=== PATIENT | male | born 1955 | race Caucasian/White ===

== ENCOUNTER 2019-04-25 10:21 | Inpatient (IN) | payer OTHER ==
--- NOTE | 2019-04-25 10:46 | PDOC ---
Documentation entered by Manuel Alejo SCRIBE, acting as scribe for Marcelino Urbina MD. Marcelino Urbina MD: This documentation has been prepared by the Melo tyler Xhesika, SCRIBE, under my direction and personally reviewed by me in its entirety. I confirm that the documentation accurately reflects all work, treatment, procedures, and medical decision making performed by me. History of Present Illness - General Stated Complaint: NUMBNESS ON LT. SIDE History Source: Patient Exam Limitations: No Limitations - History of Present Illness Initial Comments: 04/25/19 10:43 The patient is a 63-year-old male with a past medical history of prostate cancer , SVT, GERD, gastritis, and hemorrhoids who presents to the ED with L sided facial droop since 5:50AM. The patient states he woke up this morning with numbness on his L arm and his head felt heavy. The patient notes he has a family history of CVA (brother and uncle suffered from strokes). The patient denies any chest pain, shortness of breath, fever, chills, nausea, or vomiting. Denies any frequency, urgency, hesitancy, dysuria, or hematuria. Denies any chest pain or shortness of breath. Allergies: NKDA Social History: Occasional alcohol use. Former smoker. Surgical History: Hernia repair, NIH Stroke Scale - Last Known Well Date/Time & Onset Date Last Known Well: 04/25/19 Time Last Known Well: 05:50 - Initial Evaluation Level of consciousness: Alert Ask patient the month and their age: Answers both correctly Ask patient to open & close eyes; make fist and let go: Obeys both correctly Best gaze (horizontal eye movement): Normal Visual field testing: No visual field loss Facial paresis (Show teeth/raise eyebrows/close eyes tight): Partial paralysis ( total or near paralysis of lower face) Motor Function: Left Arm: Normal Motor Function: Right Arm: Normal (extends arm 90 (or 45) degrees for 10 seconds without drift Motor Function: Left Leg: Normal (extends leg 30 degrees for 5 seconds without drift) Motor Function: Right Leg: Normal (extends leg 30 degrees for 5 seconds without drift) Limb Ataxia: No ataxia Sensory(Use pinprick test arms,legs,trunk,face/side to side): Normal Best language (Describe picture, name items, read sentences): No Aphasia Dysarthria (read several words): Normal articulation Extinction and Inattention: No abnormality - Total Score NIH Stroke Scale Score: 2 Past History - Past Medical History Allergies/Adverse Reactions: Allergies Allergy/AdvReac Type Severity Reaction Status Date / Time No Known Allergies Allergy Verified 04/25/19 10:35 Home Medications: Ambulatory Orders Tamsulosin HCl [Flomax -] 0.4 mg PO DAILY 01/07/15 Metoprolol Succinate [Toprol XL -] 25 mg PO DAILY #30 tab.sr.24h 01/08/15 - Surgical History Abdominal Surgery: Yes (HERNIA REPAIR.) - Suicide/Smoking/Psychosocial Hx Smoking History: Former smoker Have you smoked in the past 12 months: No If you are a former smoker, when did you quit?: 2010 Hx Alcohol Use: Yes Drug/Substance Use Hx: No Substance Use Type: None Hx Substance Use Treatment: No Review of Systems - Review of Systems Able to Perform ROS?: Yes Comments:: 04/25/19 10:44 A complete review of 10 out of 10 review of systems is taken and is negative apart from what is previously mentioned below and in the HPI. *Physical Exam - Physical Exam Comments: 04/25/19 10:44 Vitals: Triage Vital signs reviewed General Appearance: no acute distress, well nourished well developed, Head: Atraumatic, normocephalic Eyes: Pupils equal reactive round, extraocular movement intact Neck: Supple;No Nuchal rigidity Chest Wall: Nontender Cardiac: Regular rate and rhythm, no murmurs, no rubs, no gallops, Lungs: Clear to auscultation bilateral, good air movement bilaterally, Abdomen: Soft, nondistended, normal bowel sounds, nontender to palpation Extremities: Full range of motion to all extremities, no cyanosis, clubbing, or edema Skin: Warm and dry, no rashes or lesions, no petechiae Neuro: (+) L sided facial droop. AOX3; Cranial Nerves 2-12 grossly c intact, Strength intact to all extremities, Sensation intact to all extremities, gait normal Psych: normal mood, normal affect Heart Score/ECG Review - ECG Impressions Comment:: 04/25/19 15:04 EKG performed at 1028 demonstrates normal sinus rhythm no ST elevations no T- wave inversions. Interpreted by me. ED Treatment Course - LABORATORY CBC & Chemistry Diagram: 04/25/19 11:01 04/25/19 11:01 Medical Decision Making - Medical Decision Making 04/25/19 15:04 Isolated left-sided facial droop stroke scale score 2 nonischemic TPA candidate case discussed with neurology No acute findings on patient's CT. Full dose aspirin given neurology consult. We'll do to medicine for further management. 04/25/19 15:31 *DC/Admit/Observation/Transfer Diagnosis at time of Disposition: Cerebrovascular accident (CVA) Qualifiers: CVA mechanism: other Qualified Code(s): I63.89 - Other cerebral infarction - Discharge Dispostion Disposition: HOME Decision to Admit order: Yes - Referrals - Patient Instructions - Post Discharge Activity
[2019-04-25] MEDS: SODIUM CHLORIDE 1,000 ML IV SCH (11:20)
[2019-04-25 11:41] LABS: BASO % 0.8 % (0-2.0); EOS % 3.5 % (0-4.5); HEMATOCRIT 38.9 % (35.4-49); HEMOGLOBIN 12.4 GM/dL (11.7-16.9); MEAN CELL VOLUME 78.1 fl (80-96); MEAN PLT VOLUME 8.6 fl (7.5-11.1); MONO % 7.4 % (3.8-10.2); NEUT % 56.3 % (42.8-82.8); PLATELET COUNT 196 K/MM3 (134-434); RBC 4.98 M/mm3 (4.00-5.60); RDW 17.1 % (11.9-15.9); WHITE BLOOD COUNT 5.8 K/mm3 (4.0-10.0)
[2019-04-25 11:42] LABS: INR 0.97 (0.83-1.09); PROTHROMBIN TIME (PATIENT) 11.4 SEC (9.7-13.0)
[2019-04-25 12:07] LABS: ALBUMIN 3.6 g/dl (3.4-5.0); BILIRUBIN,TOTAL 0.5 mg/dL (0.2-1); BLOOD UREA NITROGEN 10.7 mg/dL (7-18); CALCIUM 8.7 mg/dL (8.5-10.1); POTASSIUM 4.1 mmol/L (3.5-5.1); TOT PROT 6.6 g/dl (6.4-8.2)
[2019-04-25 12:08] LABS: HDL CHOLESTEROL 71 mg/dL (40-60); TRIGLYCERIDES 95 mg/dL (0-150)
[2019-04-25 12:10] LABS: CHOLESTEROL 162 mg/dL (50-200)
[2019-04-25] MEDS ORDERED: ASPIRIN 325 MG TABLET PO ONE (12:21)
[2019-04-25 12:44] LABS: PH,URINE 7.5 (5.0-8.0); URINE APPEARANCE CLEAR; URINE BILIRUBIN NEGATIVE (NEGATIVE); URINE COLOR YELLOW; URINE GLUCOSE (UA) NEGATIVE (NEGATIVE); URINE KETONE NEGATIVE (NEGATIVE); URINE LEUK ESTERASE NEGATIVE (NEGATIVE); URINE NITRITE NEGATIVE (NEGATIVE); URINE PROTEIN NEGATIVE (NEGATIVE); URINE UROBILINOGEN 0.2 mg/dL (0.2-1.0)
[2019-04-25] MEDS ORDERED: ASPIRIN 325 MG TABLET ONE (13:09)
--- NOTE | 2019-04-25 14:26 | HP ---
CHIEF COMPLAINT: Numbness and tingling of the left side of the face and arm for the past 7 hours. PCP: HISTORY OF PRESENT ILLNESS: The patient is a 63 year old male with past medical history significant for Prostate Cancer, SVT, and gastritis who presented to the ER with facial droop and paresthesia of the L face and arm for the past 7 hours. He was in his usual state of health until this morning at 5:30AM, when he woke up with numbness and tingling on the left side of his face and left arm. He reports overnight exposure to cold air on his face on account of sleeping in front of an air conditioning vent at home, which made him uncomfortable and caused him to wake up at 5:30 AM. At work, his coworker stated that his face looked different, which is when he first noticed left side facial drooping, and he presented to the ER. Patient does not report any recent history of infections, no recent vomiting or diarrhea, no recent travel or hiking/outdoor activities. ER course was notable for: (1) Lyme titers (2) MRI without contrast, EKG, Echo W/Doppler (3) Aspirin 325, Lovenox 40, Rosuvastatin 20mg, N/S Recent Travel:None PAST MEDICAL HISTORY: SVT (Ablation in 2015) Prostate Cancer (on Flomax) Gastritis PAST SURGICAL HISTORY: Social History: Smokin pack year history (quarter pack for 27 years), stopped smoking 17 years ago. Alcohol: Socially (says he will sometimes go months without drinking) Drugs: None Family History: HTN (mother) DM (sister) CVA (brother) [place] & septal defect (brother) Colon CA (grandmother) Allergies No Known Allergies Allergy (Verified 04/25/19 10:35) HOME MEDICATIONS: Home Medications Medication Instructions Recorded Tamsulosin HCl [Flomax -] 0.4 mg PO DAILY 01/07/15 Metoprolol Succinate [Toprol XL -] 25 mg PO DAILY #30 tab.sr.24h 01/08/15 REVIEW OF SYSTEMS CONSTITUTIONAL: Absent: fever, chills, diaphoresis, generalized weakness, malaise, loss of appetite, weight change HEENT: Absent: rhinorrhea, nasal congestion, throat pain, throat swelling, difficulty swallowing, mouth swelling, ear pain, eye pain, visual changes CARDIOVASCULAR: Absent: chest pain, syncope, palpitations, irregular heart rate, lightheadedness , peripheral edema RESPIRATORY: Absent: cough, shortness of breath, dyspnea with exertion, orthopnea, wheezing, stridor, hemoptysis GASTROINTESTINAL: Absent: abdominal pain, abdominal distension, nausea, vomiting, diarrhea, constipation, melena, hematochezia GENITOURINARY: Nocturia, Absent: dysuria, frequency, urgency, hesitancy, hematuria, flank pain , genital pain MUSCULOSKELETAL: Neck pain upon left sided rotation of head Absent: myalgia, arthralgia, joint swelling, back pain, neck pain SKIN: Absent: rash, itching, pallor HEMATOLOGIC/IMMUNOLOGIC: Absent: easy bleeding, easy bruising, lymphadenopathy, frequent infections ENDOCRINE: Absent: unexplained weight gain, unexplained weight loss, heat intolerance, cold intolerance NEUROLOGIC: Paresthesia L face, L arm, Facial droop L side, no visual loss PSYCHIATRIC: Absent: anxiety, depression, suicidal or homicidal ideation, hallucinations. PHYSICAL EXAMINATION Vital Signs - 24 hr 04/25/19 04/25/19 04/25/19 10:32 10:36 10:38 Temperature 98.1 F 98.2 F Pulse Rate 66 54 L Pulse Rate [ 68 Right Radial] Respiratory 14 18 Rate Blood Pressure 146/80 Blood Pressure 122/71 [Right Arm] O2 Sat by Pulse 98 99 98 Oximetry (%) GENERAL: Awake, alert, and fully oriented, in no acute distress. HEAD: Normal with no signs of trauma. EYES: R pupil reactive to light, L pupil non reactive; extraocular movements intact, sclera anicteric, conjunctiva clear. No lid lag. EARS, NOSE, THROAT: Ears normal, nares patent, oropharynx clear without exudates. Moist mucous membranes. NECK: Decreased motion on left sided rotation of head due to pain radiating from neck to scapula.No lymphadenopathy, JVD, or masses. LUNGS: Breath sounds equal, clear to auscultation bilaterally. No wheezes, and no crackles. No accessory muscle use. HEART: Regular rate and rhythm, normal S1 and S2 without murmur, rub or gallop. ABDOMEN: Soft, nontender, not distended, normoactive bowel sounds, no guarding, no rebound, no masses. No hepatomegaly or splenomegaly. MUSCULOSKELETAL: Normal range of motion at all joints. No bony deformities or tenderness. No CVA tenderness. UPPER EXTREMITIES: No arm drift. Power 5/5, normal sensation B/L 2+ pulses, warm , well-perfused. No cyanosis. No clubbing. No peripheral edema. LOWER EXTREMITIES: 2+ pulses, warm, well-perfused. No calf tenderness. No peripheral edema. NEUROLOGICAL: Facial droop, decreased sensations on L side of face, forehead wrinkling present. Speech not slurred but pt believes he sounds different. Gait not observed. PSYCHIATRIC: Cooperative. Good eye contact. Appropriate mood and affect. SKIN: Warm, dry, normal turgor, no rashes or lesions noted, normal capillary refill. Laboratory Results - last 24 hr 04/25/19 04/25/19 04/25/19 10:28 11:01 11:01 WBC 5.8 RBC 4.98 Hgb 12.4 Hct 38.9 D MCV 78.1 L MCH 25.0 L D MCHC 32.0 RDW 17.1 H Plt Count 196 MPV 8.6 Absolute Neuts (auto) 3.3 Neutrophils % 56.3 Lymphocytes % 32.0 D Monocytes % 7.4 Eosinophils % 3.5 D Basophils % 0.8 Nucleated RBC % 0 PT with INR INR Sodium Potassium Chloride Carbon Dioxide Anion Gap BUN Creatinine Est GFR (CKD-EPI)AfAm Est GFR (CKD-EPI)NonAf POC Glucometer 92 Random Glucose Calcium Total Bilirubin AST ALT Alkaline Phosphatase Creatine Kinase 128 Troponin I < 0.02 Total Protein Albumin Triglycerides Cholesterol 162 Total LDL Cholesterol HDL Cholesterol Urine Color Urine Appearance Urine pH Ur Specific [place] Urine Protein Urine Glucose (UA) Urine Ketones Urine Blood Urine Nitrite Urine Bilirubin Urine Urobilinogen Ur Leukocyte Esterase Blood Type Antibody Screen 04/25/19 04/25/19 04/25/19 11:01 11:01 11:01 WBC RBC Hgb Hct MCV MCH MCHC RDW Plt Count MPV Absolute Neuts (auto) Neutrophils % Lymphocytes % Monocytes % Eosinophils % Basophils % Nucleated RBC % PT with INR 11.40 INR 0.97 Sodium 143 Potassium 4.1 Chloride 110 H Carbon Dioxide 27 Anion Gap 6 L BUN 10.7 Creatinine 1.0 Est GFR (CKD-EPI)AfAm 91.13 Est GFR (CKD-EPI)NonAf 78.63 POC Glucometer Random Glucose 96 Calcium 8.7 Total Bilirubin 0.5 AST 18 ALT 26 Alkaline Phosphatase 73 Creatine Kinase Troponin I Total Protein 6.6 Albumin 3.6 Triglycerides 95 Cholesterol Total LDL Cholesterol 82 HDL Cholesterol 71 H Urine Color Urine Appearance Urine pH Ur Specific [place] Urine Protein Urine Glucose (UA) Urine Ketones Urine Blood Urine Nitrite Urine Bilirubin Urine Urobilinogen Ur Leukocyte Esterase Blood Type Antibody Screen 04/25/19 04/25/19 11:01 12:30 WBC RBC Hgb Hct MCV MCH MCHC RDW Plt Count MPV Absolute Neuts (auto) Neutrophils % Lymphocytes % Monocytes % Eosinophils % Basophils % Nucleated RBC % PT with INR INR Sodium Potassium Chloride Carbon Dioxide Anion Gap BUN Creatinine Est GFR (CKD-EPI)AfAm Est GFR (CKD-EPI)NonAf POC Glucometer Random Glucose Calcium Total Bilirubin AST ALT Alkaline Phosphatase Creatine Kinase Troponin I Total Protein Albumin Triglycerides Cholesterol Total LDL Cholesterol HDL Cholesterol Urine Color Yellow Urine Appearance Clear Urine pH 7.5 Ur Specific [place] 1.005 L Urine Protein Negative Urine Glucose (UA) Negative Urine Ketones Negative Urine Blood Negative Urine Nitrite Negative Urine Bilirubin Negative Urine Urobilinogen 0.2 Ur Leukocyte Esterase Negative Blood Type Cancelled Antibody Screen Cancelled ASSESSMENT/PLAN: # CVA workup -Echo w Doppler: LA mildy dilated, mild MR, mild TR, severe atherosclerotic plaques in ascending aorta, large echodensity in LA -Transesophageal echo pending _Heparin infusion started -CT Head shows no signs of hemorrhage -MRI pending -ASA 81mg started, 325mg delivered -Crestor 20mg #Lyme disease workup -Lyme AB IgG/IgM ordered #FEN -N/S -Mg,Phos pending #DVT -Heparin Visit type - Emergency Visit Emergency Visit: Yes ED Registration Date: 04/25/19 Care time: The patient presented to the Emergency Department on the above date and was hospitalized for further evaluation of their emergent condition. - New Patient This patient is new to me today: Yes Date on this admission: 04/25/19 - Critical Care Critical Care patient: No ATTENDING PHYSICIAN STATEMENT I saw and evaluated the patient. I reviewed the resident's note and discussed the case with the resident. I agree with the resident's findings and plan as documented. SUBJECTIVE: OBJECTIVE: ASSESSMENT AND PLAN:
--- NOTE | 2019-04-25 15:40 | ECHO ---
Name: BRE [facility] Exam:Adult Echocardiogram Study Date: 04/25/2019 02:22 PM Age: 63 yrs Reason For Study: CVA Height: 67 in Weight: 143 lb BSA: 1.8 m2 Left Ventricle Left ventricular systolic function is normal. Ejection Fraction = 55-60%. Right Ventricle The right ventricle is normal in size and function. Atria The left atrium is mildly dilated. There is a large echodensity noted in the left atrium best appreci ated on the parasternal long axis views: cannot exclude thrombus vs mass vs artifact. Right atrial size is no rmal. Mitral Valve The mitral valve is normal in structure and function. There is mild mitral regurgitation. Tricuspid Valve The tricuspid valve is normal in structure and function. There is mild tricuspid regurgitation. Right ventricular systolic pressure is normal. Aortic Valve The aortic valve opens well. No hemodynamically significant valvular aortic stenosis. No aortic regur gitation is present. Pulmonic Valve The pulmonic valve is not well seen, but is grossly normal. There is no pulmonic valvular stenosis. Great Vessels The aortic root is normal size. Severe atherosclerotic plaque(s) in the ascending aorta. Interpretation Summary A transesophageal echocardiogram is recommended. Left ventricular systolic function is normal. Ejection Fraction = 55-60%. The right ventricle is normal in size and function. The left atrium is mildly dilated. There is mild mitral regurgitation. There is mild tricuspid regurgitation. Severe atherosclerotic plaque(s) in the ascending aorta. There is a large echodensity noted in the left atrium best appreciated on the parasternal long axis v iews: cannot exclude thrombus vs mass vs artifact. MD Pierce *Aminata 04/25/2019 03:40 PM
[2019-04-25] MEDS ORDERED: HEPARIN NA (PORCINE) 5,000 UNITS/ML 1ML VIAL IVPUSH PRN (15:56)
--- NOTE | 2019-04-25 17:00 | PN ---
Teaching Attending Note Name of Resident: Kevin Tejada ATTENDING PHYSICIAN STATEMENT I saw and evaluated the patient. I reviewed the resident's note and discussed the case with the resident. I agree with the resident's findings and plan as documented. SUBJECTIVE: Patient is a 63 year old male with PMHx of Prostate cancer, SVT ,Gastritis presented with left facial droop. Denies having any neurological deficit. OBJECTIVE: Vital Signs Temperature 98.2 F 04/25/19 10:36 Pulse Rate 54 L 04/25/19 10:36 Respiratory Rate 18 04/25/19 10:36 Blood Pressure 146/80 04/25/19 10:36 O2 Sat by Pulse Oximetry (%) 98 04/25/19 10:38 GENERAL: The patient is awake, alert, and fully oriented, in no acute distress. HEAD: Normal with no signs of trauma. EYES: PERRL, extraocular movements intact, sclera anicteric, conjunctiva clear. ENT: Ears normal, oropharynx clear without exudates, moist mucous membranes. left facial droop NECK: Trachea midline, full range of motion, supple. LUNGS: Breath sounds equal, clear to auscultation bilaterally, no wheezes, no crackles, no accessory muscle use. HEART: Regular rate and rhythm, S1, S2 without murmur, rub or gallop. ABDOMEN: Soft, nontender, nondistended, normoactive bowel sounds, no guarding, no rebound, no hepatosplenomegaly, no masses. EXTREMITIES: 2+ pulses, warm, well-perfused, no edema. NEUROLOGICAL: Cranial nerves II through XII grossly intact. Normal speech, gait is stable. PSYCH: Normal mood, normal affect. SKIN: Warm, dry, normal turgor, no rashes or lesions noted CBCD WBC 5.8 K/mm3 (4.0-10.0) 04/25/19 11:01 RBC 4.98 M/mm3 (4.00-5.60) 04/25/19 11:01 Hgb 12.4 GM/dL (11.7-16.9) 04/25/19 11:01 Hct 38.9 % (35.4-49) D 04/25/19 11:01 MCV 78.1 fl (80-96) L 04/25/19 11:01 MCHC 32.0 g/dl (32.0-35.9) 04/25/19 11:01 RDW 17.1 % (11.9-15.9) H 04/25/19 11:01 Plt Count 196 K/MM3 (134-434) 04/25/19 11:01 MPV 8.6 fl (7.5-11.1) 04/25/19 11:01 CMP Sodium 143 mmol/L (136-145) 04/25/19 11:01 Potassium 4.1 mmol/L (3.5-5.1) 04/25/19 11:01 Chloride 110 mmol/L (98-107) H 04/25/19 11:01 Carbon Dioxide 27 mmol/L (21-32) 04/25/19 11:01 Anion Gap 6 MMOL/L (8-16) L 04/25/19 11:01 BUN 10.7 mg/dL (7-18) 04/25/19 11:01 Creatinine 1.0 mg/dL (0.55-1.3) 04/25/19 11:01 Random Glucose 96 mg/dL (74-106) 04/25/19 11:01 Calcium 8.7 mg/dL (8.5-10.1) 04/25/19 11:01 Total Bilirubin 0.5 mg/dL (0.2-1) 04/25/19 11:01 AST 18 U/L (15-37) 04/25/19 11:01 ALT 26 U/L (13-61) 04/25/19 11:01 Alkaline Phosphatase 73 U/L (45-117) 04/25/19 11:01 Total Protein 6.6 g/dl (6.4-8.2) 04/25/19 11:01 Albumin 3.6 g/dl (3.4-5.0) 04/25/19 11:01 CARDIAC ENZYMES Creatine Kinase 128 U/L (26-308) 04/25/19 11:01 Troponin I < 0.02 ng/ml (0.00-0.05) 04/25/19 11:01 Current Medications Generic Name Dose Route Start Last Admin Trade Name Freq PRN Reason Stop Dose Admin Aspirin 81 mg 04/26/19 10:00 Asa - PO DAILY GILMA Heparin Sodium (Porcine) 1,000 unit 04/25/19 15:56 Heparin - IVPUSH PRN PRN Heparin Heparin Sodium (Porcine) 5,000 unit 04/25/19 15:56 Heparin - IVPUSH PRN PRN Heparin Sodium Chloride 1,000 mls @ 42 mls/hr 04/25/19 10:45 04/25/19 11:20 Normal Saline - IV 42 mls/hr ASDIR GILMA Administration Heparin Sodium/Dextrose 25,000 units in 500 mls @ 16 mls/hr 04/25/19 16:00 Heparin Infusion - IVPB TITR GILMA Protocol 800 UNITS/HR Rosuvastatin Calcium 20 mg 04/25/19 22:00 Crestor - PO HS [facility] Home Medications Medication Instructions Recorded Tamsulosin HCl [Flomax -] 0.4 mg PO DAILY 01/07/15 Metoprolol Succinate [Toprol XL -] 25 mg PO DAILY #30 tab.sr.24h 01/08/15 Echo: left atrium clot vs artifact HEAD ct: showed white matter disease. MRI: several small bl cerebellar infarcts BL, no acute event Carotid US: within nl limits ASSESSMENT AND PLAN: This patient is a 63 year old male with past medical history significant for Prostate Cancer, SVT, and gastritis who presented to the ER with facial droop and paresthesia of the L face and arm for the past 7 hours. #Left [place] palsy: as per neuro to start the patient on prednisone 40 mg once a day for five days, and valtrex 1 gm po tid for five days # Left atrial clot: on IV heparin and cardiology consult for ELIZABETH, dr. Jansen # Chronic small bl cerebellar infarcts on Heparin and will start the patient on Lipitor 40mg po daily or 20mg Crestor and aspirin 81mg DVT Px: heparin drip
[2019-04-25] MEDS: HEPARIN INFUSION - 25,000 UNITS/500 ML INFUS.BAG IVPB SCH ×2 (17:03→18:31)
--- NOTE | 2019-04-25 17:38 | CON.NEURO ---
Consult - Past Medical History Cardio/Vascular: Yes: Other (PSVT) Renal/: Yes: BPH - Alcohol/Substance Use Hx Alcohol Use: Yes - Smoking History Smoking history: Former smoker Have you smoked in the past 12 months: No If you are a former smoker, when did you quit?: 2010 Home Medications - Allergies Allergies/Adverse Reactions: Allergies Allergy/AdvReac Type Severity Reaction Status Date / Time No Known Allergies Allergy Verified 04/25/19 10:35 - Home Medications Home Medications: Ambulatory Orders Tamsulosin HCl [Flomax -] 0.4 mg PO DAILY 01/07/15 Simvastatin 40 mg PO DAILY 04/25/19 Physical Exam-Neuro Vital Signs: Vital Signs Temperature 98.2 F 04/25/19 10:36 Pulse Rate 54 L 04/25/19 10:36 Respiratory Rate 18 04/25/19 10:36 Blood Pressure 146/80 04/25/19 10:36 O2 Sat by Pulse Oximetry (%) 98 04/25/19 10:38 Labs: CBC, BMP 04/25/19 11:01 04/25/19 11:01 INR, PTT INR 0.97 (0.83-1.09) 04/25/19 11:01 Assessment/Plan cc Left facial palsy HPI 63 year old male history of Prostate cancer, SVT , Gastritis prsent with left face drooopiness. Patient denies any other focal neurological symptoms including arm and leg weakness or numbness. Patient has ct head showed, showed white matter disease. Patient has echo and found to have left atrium clot and is being started on iv heparin without bolus. He has mri of brain done , and carotid ultrasound done and result pending. PAST MEDICAL HISTORY: SVT (Ablation in 2014) Prostate Cancer (on Flomax) Gastritis PAST SURGICAL HISTORY: Social History: Smokin pack year history (quarter pack for 27 years), stopped smoking 17 years ago. Alcohol: Socially (says he will sometimes go months without drinking) Drugs: None Family History: HTN (mother) DM (sister) CVA (brother) [place] & septal defect (brother) Colon CA (grandmother) Allergies No Known Allergies Allergy (Verified 04/25/19 10:35) HOME MEDICATIONS: Home Medications Medication Instructions Recorded Tamsulosin HCl [Flomax -] 0.4 mg PO DAILY 01/07/15 Metoprolol Succinate [Toprol XL -] 25 mg PO DAILY #30 tab.sr.24h 01/08/15 Neurological Examination Alert oriented x 3 CN eomi, pupils reactive , left LMN type facial palsy Motor 5/5 all ext sensation is normal ct head is no acute findings mri of brain and carotid ultrasound is normal Assessment/Plan 1. Left [place] palsy, advice to take prednisone 40 mg once a day for five days, and valtrex 1 gm po tid for five days 2. Left atriaum clot , iv heparin and cardiology consult Clinically there is no evidence of stroke, would follow up on carotid ultrasound and echo Thanking you so much Marcos Mai MD
[2019-04-25] MEDS ORDERED: HEPARIN INFUSION - 25,000 UNITS/500 ML INFUS.BAG IVPB ONE (18:32)
[2019-04-25] MEDS: predniSONE 20 MG TABLET (UD) PO SCH (19:07)
[2019-04-25] MEDS ORDERED: predniSONE 20 MG TABLET (UD) ONE (19:10)
[2019-04-25 21:41] VITALS: BMI 28.5
[2019-04-25] MEDS ORDERED: PT OWN MED DRAWER 7, Y5N ONE (21:53)
[2019-04-25] MEDS ORDERED: ROSUVASTATIN CA 10 MG TABLET (FP) PO SCH (22:00)
[2019-04-25] MEDS: valACYclovir HCL 500 MG TABLET (FP) PO SCH (22:57)
[2019-04-25] MEDS: ROSUVASTATIN CA 20 MG TABLET (FP) PO SCH (22:57)
[2019-04-26] MEDS: HEPARIN NA (PORCINE) 5,000 UNITS/ML 1ML VIAL IVPUSH PRN ×2 (01:13→17:16)
[2019-04-26] MEDS: HEPARIN INFUSION - 25,000 UNITS/500 ML INFUS.BAG IVPB SCH ×3 (01:13→23:27)
[2019-04-26] MEDS ORDERED: PT OWN MED DRAWER 7, Y5N ONE ×2 (05:46→21:34)
[2019-04-26] MEDS: valACYclovir HCL 500 MG TABLET (FP) PO SCH ×3 (06:00→21:44)
[2019-04-26 07:23] LABS: INR 1.03 (0.83-1.09); PROTHROMBIN TIME (PATIENT) 12.2 SEC (9.7-13.0)
[2019-04-26 08:19] LABS: ALBUMIN 3.6 g/dl (3.4-5.0); BILIRUBIN,TOTAL 0.6 mg/dL (0.2-1); BLOOD UREA NITROGEN 9.4 mg/dL (7-18); CALCIUM 8.7 mg/dL (8.5-10.1); CREATININE 0.9 mg/dL (0.55-1.3); MAGNESIUM 2.4 mg/dL (1.8-2.4); PHOSPHOROUS 3.7 mg/dL (2.5-4.9); POTASSIUM 3.8 mmol/L (3.5-5.1); TOT PROT 6.6 g/dl (6.4-8.2)
--- NOTE | 2019-04-26 09:43 | CON.CARD ---
Consult Consult Specialty:: Cardiology Referred by:: Dr. Serna Reason for Consultation:: Abnormal Echo - History of Present Illness Chief Complaint: Left facial paralysis History of Present Illness: 63M w/ PMH typical AVNRT ablation 2014 ([place]) presented with left facial droop after being exposed to direct air conditioning. Initial concern for CVA, MRI negative. 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 As part of the initial CVA work up, he had a TTE that showed a large echodensity in the left atrium on multiple views best appreciated in the parasternal long axis views: the differential includes artifact, thrombus and less likely mass. A ELIZABETH was recommended and he was started on AC. Denies CP, SOB, edema, syncope. He does have occasional short lived palpitations that last for "few seconds." - History Source History Provided By: Patient, Medical Record - Past Medical History Cardio/Vascular: Yes: Hyperlipdemia, Other (PSVT) Pulmonary: No: Asthma, Bronchitis, Cancer, COPD, O2 Dependent, Pneumonia, Previously Intubated, Pulmonary Embolus, Pulmonary Fibrosis, Sleep Apnea, Other Gastrointestinal: No: Ascites, Cancer, Constipation, Crohn's Disease, Diverticulitis, Diverticulosis, Esophageal Varices, Gastritis, GERD, GI Bleed, Hemorrhoids, Hiatal Hernia, Inflamatory Bowel Disease, Irritable Bowel Disease, Pancreatitis, Peptic Ulcer Disease, Ulcerative Colitis, Other Hepatobiliary: No: Cirrhosis, Cholelithiasis, Cholecystitis, Choledocholithiasis , Hepatitis A, Hepatitis B, Hepatitis C, Other Renal/: Yes: BPH Heme/Onc: No: Anemia, B12 Deficiency, Bleeding Disorder, Cancer, Current Chemotherapy, Current Radiation Therapy, Hemochromatosis, Hypercoaguable State, Myeloproliferative Synd, Sickle Cell Disease, Sickle Cell Trait, Thrombocytopenia, Other Infectious Disease: No: AIDS, C-Diff, Herpes Zoster, HIV, MRSA, STD's, Tuberculosis, VREF, Other Psych: No: Addictions, Anxiety, Bipolar, Depression, Panic, Psychosis, Schizophrenia, Other Musculoskeletal: No: Bursitis, Chronic low back pain, Hemiparesis, Hemiplegia, Osteoarthritis, Paraplegia, Other Rheumatology: No: Fibromyalgia, Gout, Lupus, Rheumatoid Arthritis, Sarcoidosis, Vasculitis, Other ENT: No: Allergic Rhinitis, Sinusitis, Other Endocrine: No: Sun[place]'s Disease, [place]'s Disease, Diabetes Insipidus, Diabetes Mellitus, Hyperparathyroidism, Hyperthyroidism, Hypothyroidism, Osteopenia, SIADH, Other - Alcohol/Substance Use Hx Alcohol Use: Yes - Smoking History Smoking history: Former smoker Have you smoked in the past 12 months: No If you are a former smoker, when did you quit?: 2010 - Social History Usual Living Arrangement: Alone History of Recent Travel: No Home Medications - Allergies Allergies/Adverse Reactions: Allergies Allergy/AdvReac Type Severity Reaction Status Date / Time No Known Allergies Allergy Verified 04/25/19 10:35 - Home Medications Home Medications: Ambulatory Orders Tamsulosin HCl [Flomax -] 0.4 mg PO DAILY 01/07/15 Simvastatin 40 mg PO DAILY 04/25/19 Family Disease History - Family Disease History Family History: Unremarkable (not pertinent to this presentation) Review of Systems - Review of Systems Constitutional: reports: No Symptoms Eyes: reports: No Symptoms HENT: reports: Other (Left facial droop, left eye tearing) Cardiovascular: reports: Palpitations Respiratory: denies: No Symptoms, Cough, Exercise Intolerance, Hemoptysis, Orthopnea, PND, Snoring, SOB, SOB on Exertion, Wheezing, Other Gastrointestinal: denies: No Symptoms, Abdominal Pain, Bloating, Constipation, Diarrhea, Dysphagia, Indigestion, Melena, Nausea, Rectal Bleeding, Vomiting, Vomiting Blood, Other Genitourinary: denies: No Symptoms, Burning, Discharge, Dysuria, Flank Pain, Frequency, Hematuria, Incontinence, Lesions, Menses, Pain, Testicular Mass, Testicular Pain, Testicular Swelling, Urgency, Vaginal Bleeding, Other Breasts: denies: No Symptoms Reported, See HPI, Breast Implants, Discharge from Nipple, Lumps, Pain, Skin Changes, Other Musculoskeletal: denies: No Symptoms, Back Pain, Crepitus, Decreased ROM, Extremity Pain, Joint Pain, Joint Swelling, Muscle Pain, Muscle Cramps, Muscle Weakness, Other Integumentary: denies: No Symptoms, Blister, Bruising, Change in Color, Eczema, Erythema, Incision, Lesions, Lump, Pallor, Pruritis, Rash, Wound, Other Neurological: reports: Parasthesia, Other (left facial paralysis) Endocrine: denies: No Symptoms, Excessive Sweating, Flushing, Increased Hunger, Increased Thirst, Intolerance to Cold, Intolerance to Heat, Unexplained Weight Gain, Unexplained Weight Loss, Other Hematology/Lymphatic: denies: No Symptoms, Easily Bruised, Excessive Bleeding, Swollen Glands, Other Psychiatric: denies: No Symptoms, Altered Sleep Pattern, Anxiety, Depression, Hallucinations, Panic, Paranoia, Suicidal, Other - Risk Factors Known Risk Factors: Yes: Hypercholesterolemia Vital Signs: Vital Signs Temperature 98.0 F 04/26/19 06:00 Pulse Rate 76 04/26/19 06:00 Respiratory Rate 18 04/26/19 06:00 Blood Pressure 138/87 04/26/19 06:00 O2 Sat by Pulse Oximetry (%) 95 04/25/19 21:13 Constitutional: Yes: No Distress, Calm Eyes: Yes: Tearing, Other HENT: Yes: Atraumatic Neck: Yes: Supple Respiratory: Yes: CTA Bilaterally Gastrointestinal: Yes: Soft Cardiovascular: Yes: Regular Rate and Rhythm JVD: No Carotid Bruit: No PMI: Non-Displaced Heart Sounds: Yes: S1, S2 (RRR, no murmurs) Edema: No Peripheral Pulses WNL: No Neurological: Yes: Alert, Oriented, Facial Droop ...Motor Strength: WNL - Other Data Labs, Other Data: CBC, BMP 04/25/19 11:01 04/26/19 05:32 INR, PTT INR 1.03 (0.83-1.09) 04/26/19 05:32 Troponin, BNP 04/25/19 11:01 Troponin I < 0.02 Troponin, BNP 04/25/19 11:01 Troponin I < 0.02 Laboratory Tests 04/25/19 04/25/19 04/25/19 11:01 11:01 21:25 WBC 5.8 Hgb 12.4 Plt Count 196 PTT (Actin FS) Sodium Potassium Creatinine Calcium Phosphorus Magnesium Total Bilirubin AST ALT Alkaline Phosphatase Troponin I < 0.02 Lyme Screen IgG & IgM Pending 04/26/19 04/26/19 05:32 06:46 WBC Hgb Plt Count PTT (Actin FS) 122.7 H Sodium 142 Potassium 3.8 Creatinine 0.9 Calcium 8.7 Phosphorus 3.7 Magnesium 2.4 Total Bilirubin 0.6 AST 16 ALT 22 Alkaline Phosphatase 67 Troponin I Lyme Screen IgG & IgM Sinus lore 59bpm, no acute changes. Echo: Image Reviewed Prior Cardiac Procedures: Ablation Ejection Fraction %: LVEF > or = 40 % Imaging - Results MRI: Report Reviewed EKG: Image Reviewed Assessment/Plan IMP: 1. Pond's Palsy 2. History of typical AVNRT ablation 2015 ([place]) 3. Abnl echo w/ echodensity/shadow [place]: artifact vs thrombus vs mass REC: 1. Tele: patient reports recurrent palpitations over last year, r/o recurrent PSVT vs PAF (old infarcts on MRI, ?[place] thrombus) 2. ELIZABETH to be arranged early next week 3. Cont heparin gtts until ELIZABETH can clarify the finding in [place]. (no contraindications) 4. Further Rx Pond's Palsy as per Neuro.
[2019-04-26] MEDS: TAMSULOSIN HCL 0.4 MG CAP PO SCH (09:55)
[2019-04-26] MEDS: ASPIRIN 81 MG CHEWABLE TABLETS PO SCH (09:55)
[2019-04-26] MEDS: predniSONE 20 MG TABLET (UD) PO SCH (09:55)
[2019-04-26] MEDS ORDERED: ENOXAPARIN NA (PORCINE) 40 MG/0.4 ML DISP.SYRIN SQ SCH (10:00)
[2019-04-26] MEDS: SODIUM CHLORIDE 1,000 ML IV SCH ×2 (10:45→23:27)
[2019-04-26 13:04] LABS: BASO % 0.9 % (0-2.0); HEMATOCRIT 40.7 % (35.4-49); MCH 24.7 pg (25.7-33.7); MEAN CELL VOLUME 77.2 fl (80-96); MEAN PLT VOLUME 9.8 fl (7.5-11.1); MONO % 2.2 % (3.8-10.2); NEUT % 72.9 % (42.8-82.8); PLATELET COUNT 226 K/MM3 (134-434); RBC 5.27 M/mm3 (4.00-5.60); RDW 17.7 % (11.9-15.9); WHITE BLOOD COUNT 6.7 K/mm3 (4.0-10.0)
--- NOTE | 2019-04-26 14:35 | PN ---
Progress Note (short form) - Note Progress Note: 63 year old male history of Prostate cancer, SVT , Gastritis prsent with left face drooopiness. Patient denies any other focal neurological symptoms including arm and leg weakness or numbness. Patient has ct head showed, showed white matter disease. Patient has echo and found to have left atrium clot and is being started on iv heparin without bolus. He has mri of brain done , and carotid ultrasound done and result pending. Neurological Examination Alert oriented x 3 CN eomi, pupils reactive , left LMN type facial palsy Motor 5/5 all ext sensation is normal ct head is no acute findings mri of brain and carotid ultrasound is normal Assessment/Plan 1. Left [place] palsy, continue Prednisone 40 mg once a day for five days, and Valtrex 1 gm po tid for five days 2. Left atriaum clot vs mass, bread dough mixer consult apreciated Clinically there is no evidence of stroke and contraindicaiton for iv heparin Thanking you so much Marcos Mai MD
--- NOTE | 2019-04-26 18:04 | PN ---
Progress Note (short form) - Note Progress Note: Patient is feeling slightly better, no new changes. Vital Signs Temperature 98.4 F 04/26/19 14:25 Pulse Rate 73 04/26/19 14:25 Respiratory Rate 18 04/26/19 14:25 Blood Pressure 133/77 04/26/19 14:25 O2 Sat by Pulse Oximetry (%) 95 04/26/19 09:00 GENERAL: The patient is awake, alert, and fully oriented, in no acute distress. HEAD: Normal with no signs of trauma. EYES: PERRL, extraocular movements intact, sclera anicteric, conjunctiva clear. ENT: Ears normal, oropharynx clear without exudates, moist mucous membranes. NECK: Trachea midline, full range of motion, supple. LUNGS: Breath sounds equal, clear to auscultation bilaterally, no wheezes, no crackles, no accessory muscle use. HEART: Regular rate and rhythm, S1, S2 without murmur, rub or gallop. ABDOMEN: Soft, nontender, nondistended, normoactive bowel sounds, no guarding, no rebound, no hepatosplenomegaly, no masses. EXTREMITIES: 2+ pulses, warm, well-perfused, no edema. NEUROLOGICAL: Cranial nerves II through XII grossly intact. Normal speech, gait not observed. PSYCH: Normal mood, normal affect. SKIN: Warm, dry, normal turgor, no rashes or lesions noted CBCD WBC 6.7 K/mm3 (4.0-10.0) 04/26/19 05:45 RBC 5.27 M/mm3 (4.00-5.60) 04/26/19 05:45 Hgb 13.0 GM/dL (11.7-16.9) 04/26/19 05:45 Hct 40.7 % (35.4-49) 04/26/19 05:45 MCV 77.2 fl (80-96) L 04/26/19 05:45 MCHC 32.0 g/dl (32.0-35.9) 04/26/19 05:45 RDW 17.7 % (11.9-15.9) H 04/26/19 05:45 Plt Count 226 K/MM3 (134-434) 04/26/19 05:45 MPV 9.8 fl (7.5-11.1) D 04/26/19 05:45 CMP Sodium 142 mmol/L (136-145) 04/26/19 05:32 Potassium 3.8 mmol/L (3.5-5.1) 04/26/19 05:32 Chloride 108 mmol/L (98-107) H 04/26/19 05:32 Carbon Dioxide 27 mmol/L (21-32) 04/26/19 05:32 Anion Gap 7 MMOL/L (8-16) L 04/26/19 05:32 BUN 9.4 mg/dL (7-18) 04/26/19 05:32 Creatinine 0.9 mg/dL (0.55-1.3) 04/26/19 05:32 Random Glucose 124 mg/dL (74-106) H 04/26/19 05:32 Calcium 8.7 mg/dL (8.5-10.1) 04/26/19 05:32 Total Bilirubin 0.6 mg/dL (0.2-1) 04/26/19 05:32 AST 16 U/L (15-37) 04/26/19 05:32 ALT 22 U/L (13-61) 04/26/19 05:32 Alkaline Phosphatase 67 U/L (45-117) 04/26/19 05:32 Total Protein 6.6 g/dl (6.4-8.2) 04/26/19 05:32 Albumin 3.6 g/dl (3.4-5.0) 04/26/19 05:32 CARDIAC ENZYMES Creatine Kinase 128 U/L (26-308) 04/25/19 11:01 Troponin I < 0.02 ng/ml (0.00-0.05) 04/25/19 11:01 Current Medications Generic Name Dose Route Start Last Admin Trade Name Freq PRN Reason Stop Dose Admin Aspirin 81 mg 04/26/19 10:00 04/26/19 09:55 Asa - PO 81 mg DAILY GILMA Administration Heparin Sodium (Porcine) 1,000 unit 04/25/19 15:56 Heparin - IVPUSH PRN PRN Heparin Heparin Sodium (Porcine) 5,000 unit 04/25/19 15:56 04/26/19 17:16 Heparin - IVPUSH 5,000 unit PRN PRN Administration Heparin Sodium Chloride 1,000 mls @ 42 mls/hr 04/25/19 10:45 04/26/19 10:45 Normal Saline - IV 42 mls/hr ASDIR GILMA Administration Heparin Sodium/Dextrose 25,000 units in 500 mls @ 16 mls/hr 04/25/19 16:00 17:16 Heparin Infusion - IVPB 950 units/hr TITR GILMA 19 mls/hr Titration Protocol 800 UNITS/HR Prednisone 40 mg 04/25/19 17:45 04/26/19 09:55 Deltasone - PO 04/29/19 10:01 40 mg DAILY GILMA Administration Rosuvastatin Calcium 20 mg 04/25/19 22:00 04/25/19 22:57 Crestor - PO 20 mg HS GILMA Administration Tamsulosin HCl 0.4 mg 04/26/19 08:30 04/26/19 09:55 Flomax - PO 0.4 mg DAILY@0830 GILMA Administration Valacyclovir HCl 1,000 mg 04/25/19 22:00 04/26/19 13:21 Valtrex - PO 04/30/19 14:01 1,000 mg TID GILMA Administration Home Medications Medication Instructions Recorded Tamsulosin HCl [Flomax -] 0.4 mg PO DAILY 01/07/15 Simvastatin 40 mg PO DAILY 04/25/19 Echo: left atrium clot vs artifact HEAD ct: showed white matter disease. MRI: several small bl cerebellar infarcts BL, no acute event Carotid US: within nl limits ASSESSMENT AND PLAN: This patient is a 63 year old male with past medical history significant for Prostate Cancer, SVT, and gastritis who presented to the ER with facial droop and paresthesia of the L side of the face and arm x 7 hours on the admission day. #Left [place] palsy: as per neuro to continue prednisone 40 mg once a day 2/5 for five days, and valtrex 1 gm po tid 2/5 for five days # Left atrial clot: on IV heparin and cardiology consult for ELIZABETH, dr. Jansen # Chronic small bl cerebellar infarcts on Heparin drip , continue Lipitor 40mg po daily or 20mg Crestor and aspirin 81mg DVT Px: heparin drip Visit type - Emergency Visit Emergency Visit: Yes ED Registration Date: 04/25/19 Care time: The patient presented to the Emergency Department on the above date and was hospitalized for further evaluation of their emergent condition. - New Patient This patient is new to me today: No - Critical Care Critical Care patient: No - Discharge Referral Referred to [facility] No
[2019-04-26] MEDS: ROSUVASTATIN CA 20 MG TABLET (FP) PO SCH (21:44)
[2019-04-27] MEDS ORDERED: PT OWN MED DRAWER 7, Y5N ONE ×3 (06:38→21:05)
[2019-04-27] MEDS: valACYclovir HCL 500 MG TABLET (FP) PO SCH ×3 (07:26→21:44)
[2019-04-27 08:14] LABS: BASO % 0.3 % (0-2.0); EOS % 0.6 % (0-4.5); HEMATOCRIT 36.4 % (35.4-49); HEMOGLOBIN 11.7 GM/dL (11.7-16.9); LYMPH % 30.9 % (8-40); MCH 25.3 pg (25.7-33.7); MCHC 32.1 g/dl (32.0-35.9); MEAN CELL VOLUME 78.8 fl (80-96); MEAN PLT VOLUME 9.3 fl (7.5-11.1); MONO % 9.3 % (3.8-10.2); NEUT % 58.9 % (42.8-82.8); PLATELET COUNT 201 K/MM3 (134-434); RBC 4.62 M/mm3 (4.00-5.60); RDW 16.9 % (11.9-15.9); WHITE BLOOD COUNT 8.8 K/mm3 (4.0-10.0)
[2019-04-27 08:42] LABS: ALBUMIN 3.2 g/dl (3.4-5.0); BILIRUBIN,TOTAL 0.5 mg/dL (0.2-1); BLOOD UREA NITROGEN 14.3 mg/dL (7-18); CALCIUM 8.6 mg/dL (8.5-10.1); MAGNESIUM 2.5 mg/dL (1.8-2.4); POTASSIUM 3.6 mmol/L (3.5-5.1)
[2019-04-27] MEDS: ASPIRIN 81 MG CHEWABLE TABLETS PO SCH (09:05)
[2019-04-27] MEDS: TAMSULOSIN HCL 0.4 MG CAP PO SCH (09:05)
[2019-04-27] MEDS: predniSONE 20 MG TABLET (UD) PO SCH (09:05)
--- NOTE | 2019-04-27 09:27 | PN ---
Progress Note, Physician Chief Complaint: Left facial paralysis unchanged Denies CP, SOB or any new neuro sx TELE: NSR, NSVT (3beat runs), occasional V couplets, periods of V bigeminy - Current Medication List Current Medications: Active Medications Aspirin (Asa -) 81 mg PO DAILY [facility] Last Admin: 04/27/19 09:05 Dose: 81 mg Heparin Sodium (Porcine) (Heparin -) 1,000 unit IVPUSH PRN PRN PRN Reason: Heparin Heparin Sodium (Porcine) (Heparin -) 5,000 unit IVPUSH PRN PRN PRN Reason: Heparin Last Admin: 04/26/19 17:16 Dose: 5,000 unit Heparin Sodium/Dextrose (Heparin Infusion -) 25,000 units in 500 mls @ 16 mls/ hr IVPB TITR [facility]; Protocol Last Titration: 04/27/19 00:33 Dose: 900 units/hr, 18 mls/hr Prednisone (Deltasone -) 40 mg PO DAILY [facility] Stop: 04/29/19 10:01 Last Admin: 04/27/19 09:05 Dose: 40 mg Rosuvastatin Calcium (Crestor -) 20 mg PO HS [facility] Last Admin: 04/26/19 21:44 Dose: 20 mg Tamsulosin HCl (Flomax -) 0.4 mg PO DAILY@0830 [facility] Last Admin: 04/27/19 09:05 Dose: 0.4 mg Valacyclovir HCl (Valtrex -) 1,000 mg PO TID [facility] Stop: 04/30/19 14:01 Last Admin: 04/27/19 07:26 Dose: 1,000 mg - Objective Vital Signs: Vital Signs Temperature 98.4 F 04/27/19 05:49 Pulse Rate 70 04/27/19 05:49 Respiratory Rate 20 04/27/19 05:49 Blood Pressure 129/57 L 04/27/19 05:49 O2 Sat by Pulse Oximetry (%) 96 04/26/19 22:00 Constitutional: Yes: No Distress, Calm Eyes: Yes: Conjunctiva Clear HENT: Yes: Other (Left facial droop) Cardiovascular: Yes: Regular Rate and Rhythm Respiratory: Yes: CTA Bilaterally Gastrointestinal: Yes: Soft Edema: No Neurological: Yes: Alert, Oriented Labs: CBC, BMP 04/27/19 06:30 04/27/19 06:30 INR, PTT INR 1.03 (0.83-1.09) 04/26/19 05:32 - ....Imaging EKG: Image Reviewed Assessment/Plan Assessment/Plan IMP: 1. Pond's Palsy w/ left facial paralysis (complete upper/lower) 2. History of typical AVNRT ablation 2014 ([place]) 3. Abnl echo w/ echodensity/shadow [place]: artifact vs thrombus vs mass 4. NSVT, normal LVEF REC: 1. Tele: patient reports recurrent palpitations over last year, r/o recurrent PSVT vs PAF (old infarcts on MRI, ?[place] thrombus); may be due to PVCs and short self limited runs NSVT. Will replete K+, consider addition low dose B-Caty. 2. ELIZABETH to be arranged early next this week. 3. Cont heparin gtts until ELIZABETH can clarify the finding in [place]. (no contraindications) 4. Further Rx Pond's Palsy as per Neuro.
--- NOTE | 2019-04-27 09:29 | PN ---
Physical Exam: SUBJECTIVE: Patient seen and examined at bedside this morning. No acute events overnight. Patient reports difficulty eating because of the facial droop. Otherwise he reports feeling well, denies any fever, chills, headache, dizziness , chest pain, SOB, abdominal pain, diarrhea, urinary symptoms. OBJECTIVE: Vital Signs Temperature 98.4 F 04/27/19 05:49 Pulse Rate 70 04/27/19 05:49 Respiratory Rate 20 04/27/19 05:49 Blood Pressure 129/57 L 04/27/19 05:49 O2 Sat by Pulse Oximetry (%) 96 04/26/19 22:00 GENERAL: The patient is awake, alert, and fully oriented, in no acute distress. EYES: PERRLA, EOMI, sclera anicteric, conjunctiva clear. ENT: moist mucous membranes. NECK: Trachea midline, full range of motion, supple. LUNGS: Breath sounds equal, clear to auscultation bilaterally. HEART: Regular rate and rhythm, S1, S2 without murmur, rub or gallop. ABDOMEN: Soft, nontender, nondistended, normoactive bowel sounds. EXTREMITIES: 2+ pulses, warm, well-perfused, no edema. NEUROLOGICAL: AAOx3. unable to close left eye tight, left facial droop. Slurred speech. Motor strength 5/5, sensation intact on all extremities. Normal gait. PSYCH: Normal mood, normal affect. SKIN: Warm, dry, normal turgor, no rashes or lesions noted Laboratory Results - last 24 hr 04/26/19 04/26/19 04/26/19 05:45 15:45 23:30 WBC 6.7 RBC 5.27 Hgb 13.0 Hct 40.7 MCV 77.2 L MCH 24.7 L MCHC 32.0 RDW 17.7 H Plt Count 226 MPV 9.8 D Absolute Neuts (auto) 4.9 Neutrophils % 72.9 D Lymphocytes % 24.0 D Monocytes % 2.2 L Eosinophils % 0.0 D Basophils % 0.9 Nucleated RBC % 0 PTT (Actin FS) 36.8 H 83.4 H Sodium Potassium Chloride Carbon Dioxide Anion Gap BUN Creatinine Est GFR (CKD-EPI)AfAm Est GFR (CKD-EPI)NonAf Random Glucose Calcium Phosphorus Magnesium Total Bilirubin AST ALT Alkaline Phosphatase Total Protein Albumin 04/27/19 04/27/19 04/27/19 06:30 06:30 06:30 WBC 8.8 RBC 4.62 Hgb 11.7 Hct 36.4 MCV 78.8 L MCH 25.3 L MCHC 32.1 RDW 16.9 H Plt Count 201 MPV 9.3 Absolute Neuts (auto) 5.2 Neutrophils % 58.9 Lymphocytes % 30.9 D Monocytes % 9.3 D Eosinophils % 0.6 D Basophils % 0.3 Nucleated RBC % 0 PTT (Actin FS) 53.7 H Sodium 144 Potassium 3.6 Chloride 112 H Carbon Dioxide 29 Anion Gap 3 L BUN 14.3 Creatinine 1.0 Est GFR (CKD-EPI)AfAm 91.13 Est GFR (CKD-EPI)NonAf 78.63 Random Glucose 98 Calcium 8.6 Phosphorus 3.0 Magnesium 2.5 H Total Bilirubin 0.5 AST 10 L ALT 21 Alkaline Phosphatase 61 Total Protein 6.0 L Albumin 3.2 L Active Medications Generic Name Dose Route Start Last Admin Trade Name Freq PRN Reason Stop Dose Admin Aspirin 81 mg 04/26/19 10:00 04/27/19 09:05 Asa - PO 81 mg DAILY GILMA Administration Heparin Sodium (Porcine) 1,000 unit 04/25/19 15:56 Heparin - IVPUSH PRN PRN Heparin Heparin Sodium (Porcine) 5,000 unit 04/25/19 15:56 04/26/19 17:16 Heparin - IVPUSH 5,000 unit PRN PRN Administration Heparin Heparin Sodium/Dextrose 25,000 units in 500 mls @ 16 mls/hr 04/25/19 16:00 00:33 Heparin Infusion - IVPB 900 units/hr TITR GILMA 18 mls/hr Titration Protocol 800 UNITS/HR Prednisone 40 mg 04/25/19 17:45 04/27/19 09:05 Deltasone - PO 04/29/19 10:01 40 mg DAILY GILMA Administration Rosuvastatin Calcium 20 mg 04/25/19 22:00 04/26/19 21:44 Crestor - PO 20 mg HS GILMA Administration Tamsulosin HCl 0.4 mg 04/26/19 08:30 04/27/19 09:05 Flomax - PO 0.4 mg DAILY@0830 GILMA Administration Valacyclovir HCl 1,000 mg 04/25/19 22:00 04/27/19 07:26 Valtrex - PO 04/30/19 14:01 1,000 mg TID GILMA Administration ASSESSMENT/PLAN: patient is a 63 year old male with past medical history significant for BPH, SVT , and gastritis who presented to the ER with left facial droop and paresthesia of the L face. #Left facial paralysis -likely 2/2 Pond's palsy (left LMN paralysis) -Brain MRI - No acute infarct identified. Several small chronic bilateral cerebellar infarct noted. Minimal to mild periventricular and subcortical chronic microvascular ischemic changes. -Carotid doppler - No doppler evidence of high grade carotid artery stenosis identified. -Neurology (Dr. Mai) consulted. REcommendations appreciated. -Continue Prednisone 40mg x 5 days -Continue Valacyclovir 1gm TID x5 days -Will switch diet to dysphagia chopped as patient has difficulty chewing. #Echodensity/Shadow [place] on Echo -artifact vs thrombus vs mass -Cardiology (Dr. Coates) consulted. Recommendations appreciated. -ELIZABETH to be arranged this week. -Continue heparin drip until ELIZABETH can clarifu the findings in [place] #Multiple acute/chronic infarcts -Continue ASA 81mg daily -Continue Crestor 20mg Po HS #BPH -continue Tamsulosin 0.4mg daily #FEN -Not on any standing fluids -Electrolytes wnl, routine bmp monitoring -Dysphagia chopped diet. #Prophylaxis -On heparin drip #Disposition -full code -admit to tele Visit type - Emergency Visit Emergency Visit: Yes ED Registration Date: 04/25/19 Care time: The patient presented to the Emergency Department on the above date and was hospitalized for further evaluation of their emergent condition. - New Patient This patient is new to me today: Yes Date on this admission: 04/27/19 - Critical Care Critical Care patient: No ATTENDING PHYSICIAN STATEMENT I saw and evaluated the patient. I reviewed the resident's note and discussed the case with the resident. I agree with the resident's findings and plan as documented. SUBJECTIVE: OBJECTIVE: ASSESSMENT AND PLAN:
[2019-04-27] MEDS ORDERED: POTASSIUM CHLORIDE TABS 20 MEQ TABLET.ER (FP) PO ONE (10:00)
--- NOTE | 2019-04-27 10:49 | PN ---
Progress Note (short form) - Note Progress Note: 63 year old male history of Prostate cancer, SVT , Gastritis prsent with left face drooopiness. Patient denies any other focal neurological symptoms including arm and leg weakness or numbness. Patient has ct head showed, showed white matter disease. Patient has echo and found to have left atrium clot and is being started on iv heparin without bolus. He has mri of brain done , and carotid ultrasound done and result pending. Neurological Examination Alert oriented x 3 CN eomi, pupils reactive , left LMN type facial palsy Motor 5/5 all ext sensation is normal ct head is no acute findings mri of brain and carotid ultrasound is normal Assessment/Plan 1. Left [place] palsy, continue Prednisone 40 mg once a day for five days, and Valtrex 1 gm po tid for five days 2. Left atriaum clot vs mass, delivery consultant consult apreciated, and waiting for possible ELIZABETH tomorrow. Clinically there is no evidence of stroke and contraindicaiton for iv heparin . Continue current level of care. Thanking you so much Marcos Mai MD
[2019-04-27] MEDS: POLYETHYLENE GLYCOL 3350 119 GM BTL PO SCH (11:40)
--- NOTE | 2019-04-27 14:52 | PN ---
Teaching Attending Note Name of Resident: Nikia Jules ATTENDING PHYSICIAN STATEMENT I saw and evaluated the patient. I reviewed the resident's note and discussed the case with the resident. I agree with the resident's findings and plan as documented. SUBJECTIVE: Patient is comfortable with no acute distress, no change with his symptoms. OBJECTIVE: Vital Signs Temperature 97.9 F 04/27/19 09:54 Pulse Rate 64 04/27/19 09:54 Respiratory Rate 20 04/27/19 09:54 Blood Pressure 123/61 04/27/19 09:54 O2 Sat by Pulse Oximetry (%) 96 04/27/19 09:00 GENERAL: The patient is awake, alert, and fully oriented, in no acute distress. HEAD: Normal with no signs of trauma. EYES: PERRL, extraocular movements intact, sclera anicteric, conjunctiva clear. ENT: Ears normal, oropharynx clear without exudates, moist mucous membranes. NECK: Trachea midline, full range of motion, supple. LUNGS: Breath sounds equal, clear to auscultation bilaterally, no wheezes, no crackles, no accessory muscle use. HEART: Regular rate and rhythm, S1, S2 without murmur, rub or gallop. ABDOMEN: Soft, nontender, nondistended, normoactive bowel sounds, no guarding, no rebound, no hepatosplenomegaly, no masses. EXTREMITIES: 2+ pulses, warm, well-perfused, no edema. NEUROLOGICAL: Cranial nerves II through XII grossly intact. Normal speech, gait not observed. PSYCH: Normal mood, normal affect. SKIN: Warm, dry, normal turgor, no rashes or lesions noted CBCD WBC 8.8 K/mm3 (4.0-10.0) 04/27/19 06:30 RBC 4.62 M/mm3 (4.00-5.60) 04/27/19 06:30 Hgb 11.7 GM/dL (11.7-16.9) 04/27/19 06:30 Hct 36.4 % (35.4-49) 04/27/19 06:30 MCV 78.8 fl (80-96) L 04/27/19 06:30 MCHC 32.1 g/dl (32.0-35.9) 04/27/19 06:30 RDW 16.9 % (11.9-15.9) H 04/27/19 06:30 Plt Count 201 K/MM3 (134-434) 04/27/19 06:30 MPV 9.3 fl (7.5-11.1) 04/27/19 06:30 CMP Sodium 144 mmol/L (136-145) 04/27/19 06:30 Potassium 3.6 mmol/L (3.5-5.1) 04/27/19 06:30 Chloride 112 mmol/L (98-107) H 04/27/19 06:30 Carbon Dioxide 29 mmol/L (21-32) 04/27/19 06:30 Anion Gap 3 MMOL/L (8-16) L 04/27/19 06:30 BUN 14.3 mg/dL (7-18) 04/27/19 06:30 Creatinine 1.0 mg/dL (0.55-1.3) 04/27/19 06:30 Random Glucose 98 mg/dL (74-106) 04/27/19 06:30 Calcium 8.6 mg/dL (8.5-10.1) 04/27/19 06:30 Total Bilirubin 0.5 mg/dL (0.2-1) 04/27/19 06:30 AST 10 U/L (15-37) L 04/27/19 06:30 ALT 21 U/L (13-61) 04/27/19 06:30 Alkaline Phosphatase 61 U/L (45-117) 04/27/19 06:30 Total Protein 6.0 g/dl (6.4-8.2) L 04/27/19 06:30 Albumin 3.2 g/dl (3.4-5.0) L 04/27/19 06:30 CARDIAC ENZYMES Creatine Kinase 128 U/L (26-308) 04/25/19 11:01 Troponin I < 0.02 ng/ml (0.00-0.05) 04/25/19 11:01 Current Medications Generic Name Dose Route Start Last Admin Trade Name Freq PRN Reason Stop Dose Admin Aspirin 81 mg 04/26/19 10:00 04/27/19 09:05 Asa - PO 81 mg DAILY GILMA Administration Docusate Sodium 300 mg 04/27/19 22:00 Colace - PO HS GILMA Heparin Sodium (Porcine) 1,000 unit 04/25/19 15:56 Heparin - IVPUSH PRN PRN Heparin Heparin Sodium (Porcine) 5,000 unit 04/25/19 15:56 04/26/19 17:16 Heparin - IVPUSH 5,000 unit PRN PRN Administration Heparin Heparin Sodium/Dextrose 25,000 units in 500 mls @ 16 mls/hr 04/25/19 16:00 00:33 Heparin Infusion - IVPB 900 units/hr TITR GILMA 18 mls/hr Titration Protocol 800 UNITS/HR Polyethylene Glycol 17 gm 04/27/19 10:00 04/27/19 11:40 Miralax (For Daily Use) - PO 17 gm DAILY GILMA Administration Prednisone 40 mg 04/25/19 17:45 04/27/19 09:05 Deltasone - PO 04/29/19 10:01 40 mg DAILY GILMA Administration Rosuvastatin Calcium 20 mg 04/25/19 22:00 04/26/19 21:44 Crestor - PO 20 mg HS GIMLA Administration Tamsulosin HCl 0.4 mg 04/26/19 08:30 04/27/19 09:05 Flomax - PO 0.4 mg DAILY@0830 GILMA Administration Valacyclovir HCl 1,000 mg 04/25/19 22:00 04/27/19 14:16 Valtrex - PO 04/30/19 14:01 1,000 mg TID GILMA Administration Home Medications Medication Instructions Recorded Tamsulosin HCl [Flomax -] 0.4 mg PO DAILY 01/07/15 Simvastatin 40 mg PO DAILY 04/25/19 Echo: left atrium clot vs artifact HEAD ct: showed white matter disease. MRI: several small bl cerebellar infarcts BL, no acute event Carotid US: within nl limits ASSESSMENT AND PLAN: This patient is a 63 year old male with past medical history significant for Prostate Cancer, SVT, and gastritis who presented to the ER with facial droop and paresthesia of the L side of the face and arm x 7 hours on the admission day. #Left [place] palsy: as per neuro to continue prednisone 40 mg once a day 3/5 for five days, and valtrex 1 gm po tid 3/5 for five days, no change in his symptoms. # Left atrial clot: on IV heparin and cardiology consult for ELIZABETH, dr. Jansen # Chronic small bl cerebellar infarcts on Heparin drip , continue Lipitor 40mg po daily or 20mg Crestor and aspirin 81mg DVT Px: heparin drip
--- NOTE | 2019-04-27 17:50 | EKG ---
Test Reason : Blood Pressure : / mmHG Vent. Rate : 059 BPM Atrial Rate : 059 BPM P-R Int : 148 ms QRS Dur : 098 ms QT Int : 394 ms P-R-T Axes : 017 -04 000 degrees QTc Int : 390 ms SINUS BRADYCARDIA WITH SINUS ARRHYTHMIA OTHERWISE NORMAL ECG WHEN COMPARED WITH ECG OF 07-JAN-2015 10:19, PREMATURE VENTRICULAR COMPLEXES ARE NO LONGER PRESENT VENT. RATE HAS DECREASED BY 44 BPM Confirmed by DAWOOD NINA, PARVIN ([id number]) on 04/27/2019 5:50:29 PM Referred By: Confirmed By:PARVIN SEAY MD
[2019-04-27] MEDS: ROSUVASTATIN CA 20 MG TABLET (FP) PO SCH (21:44)
[2019-04-27] MEDS ORDERED: DOCUSATE SODIUM 100 MG CAPSULE (FP) PO SCH (22:00)
[2019-04-28] MEDS ORDERED: PT OWN MED DRAWER 7, Y5N ONE ×3 (05:33→14:12)
[2019-04-28] MEDS: valACYclovir HCL 500 MG TABLET (FP) PO SCH ×2 (05:47→14:22)
[2019-04-28 06:36] VITALS: TEMP 97.8
[2019-04-28 07:06] LABS: BASO % 0.3 % (0-2.0); BLOOD UREA NITROGEN 9.5 mg/dL (7-18); CALCIUM 8.7 mg/dL (8.5-10.1); CREATININE 0.9 mg/dL (0.55-1.3); EOS % 0.5 % (0-4.5); HEMATOCRIT 34.6 % (35.4-49); HEMOGLOBIN 11.2 GM/dL (11.7-16.9); LYMPH % 31.3 % (8-40); MCH 25.2 pg (25.7-33.7); MCHC 32.3 g/dl (32.0-35.9); MEAN CELL VOLUME 78.1 fl (80-96); MEAN PLT VOLUME 9.5 fl (7.5-11.1); MONO % 8.7 % (3.8-10.2); NEUT % 59.2 % (42.8-82.8); PLATELET COUNT 192 K/MM3 (134-434); POTASSIUM 3.8 mmol/L (3.5-5.1); RBC 4.43 M/mm3 (4.00-5.60); RDW 17.7 % (11.9-15.9); WHITE BLOOD COUNT 9.5 K/mm3 (4.0-10.0)
[2019-04-28] MEDS ORDERED: GLYCERIN 1 RECTAL SUPPOSITORY, ADULT PR PRN (08:03)
--- NOTE | 2019-04-28 09:06 | PN ---
Progress Note (short form) - Note Progress Note: 63 year old male history of Prostate cancer, SVT , Gastritis prsent with left face drooopiness. Patient denies any other focal neurological symptoms including arm and leg weakness or numbness. Patient has ct head showed, showed white matter disease. Patient has echo and found to have left atrium clot and is being started on iv heparin without bolus. He has mri of brain done , and carotid ultrasound done and it was unremarkable no new symptoms Neurological Examination Alert oriented x 3 CN eomi, pupils reactive , left LMN type facial palsy Motor 5/5 all ext sensation is normal ct head is no acute findings mri of brain and carotid ultrasound is normal Assessment/Plan 1. Left [place] palsy, continue Prednisone 40 mg once a day for five days, and Valtrex 1 gm po tid for five days 2. Left atriaum clot vs mass, golf manager consult apreciated, and waiting for possible ELIZABETH today. continue current level of care Thanking you so much Marcos Mai MD
[2019-04-28] MEDS: predniSONE 20 MG TABLET (UD) PO SCH (10:24)
[2019-04-28] MEDS: ASPIRIN 81 MG CHEWABLE TABLETS PO SCH (10:24)
[2019-04-28] MEDS: TAMSULOSIN HCL 0.4 MG CAP PO SCH (10:24)
[2019-04-28] MEDS: POLYETHYLENE GLYCOL 3350 119 GM BTL PO SCH (10:27)
[2019-04-28 10:54] VITALS: BP 127/69; PULSE 64
--- NOTE | 2019-04-28 11:45 | CONSULT ---
Admitting History and Physical - Primary Care Physician PCP: Alannah Serna - Admission History of Present Illness: 63 year old male history of Prostate cancer, SVT , Gastritis with left facial weakness, diagnosed as Left [place]'s Palsy. ct head showed, showed white matter disease. Left atrium clot Pending ELIZABETH mri of brain bilat chronic cerebellar infarcts History Source: Patient Limitations to Obtaining History: No Limitations - Past Medical History Cardiovascular: Yes: Hyperlipdemia, Other (PSVT) Pulmonary: No: Asthma, Bronchitis, Cancer, COPD, O2 Dependent, Pneumonia, Previously Intubated, Pulmonary Embolus, Pulmonary Fibrosis, Sleep Apnea, Other Gastrointestinal: No: Ascites, Cancer, Constipation, Crohn's Disease, Diverticulitis, Diverticulosis, Esophageal Varices, Gastritis, GERD, GI Bleed, Hemorrhoids, Hiatal Hernia, Inflamatory Bowel Disease, Irritable Bowel Disease, Pancreatitis, Peptic Ulcer Disease, Ulcerative Colitis, Other Hepatobiliary: No: Cirrhosis, Cholelithiasis, Cholecystitis, Choledocholithiasis , Hepatitis A, Hepatitis B, Hepatitis C, Other Renal/: Yes: BPH Heme/Onc: No: Anemia, B12 Deficiency, Bleeding Disorder, Cancer, Current Chemotherapy, Current Radiation Therapy, Hemochromatosis, Hypercoaguable State, Myeloproliferative Synd, Sickle Cell Disease, Sickle Cell Trait, Thrombocytopenia, Other Infectious Disease: No: AIDS, C-Diff, Herpes Zoster, HIV, MRSA, STD's, Tuberculosis, VREF, Other Psych: No: Addictions, Anxiety, Bipolar, Depression, Panic, Psychosis, Schizophrenia, Other Musculoskeletal: No: Bursitis, Chronic low back pain, Hemiparesis, Hemiplegia, Osteoarthritis, Paraplegia, Other Rheumatology: No: Fibromyalgia, Gout, Lupus, Rheumatoid Arthritis, Sarcoidosis, Vasculitis, Other ENT: No: Allergic Rhinitis, Sinusitis, Other Endocrine: No: [place]'s Disease, [place]'s Disease, Diabetes Insipidus, Diabetes Mellitus, Hyperparathyroidism, Hyperthyroidism, Hypothyroidism, Osteopenia, SIADH, Other - Smoking History Smoking history: Former smoker Have you smoked in the past 12 months: No If you are a former smoker, when did you quit?: 2010 - Alcohol/Substance Use Hx Alcohol Use: Yes - Social History History of Recent Travel: No History - Admission Reason For Visit: CVA - Diagnostics X-ray: Report Reviewed CT Scan: Report Reviewed MRI: Report Reviewed (chronic bilateral cerebellar infarcts. No acute CVA) - General Mental Status: Alert and Oriented, Awake and Alert, Able to Follow Commands Attention: Intact Ability to Follow Directions: Excellent Head/Neck Control: WFL - Hearing Hearing: Normal Speech Evaluation - Communication Primary Language: PRYDEINIG Oral Expression Ability: Yes: Mild Impairment - Speech Production Able to Make Needs Known: Yes: WNL Intelligibility: Yes: Mildly Impaired - Speech Characteristics Voice Loudness: Normal Voice Pitch: Yes: Normal Voice Phonatory-based Quality: Yes: Normal Speech Clarity: < 100% Nasal Resonance: Normal Articulation: Yes: Imprecise - Language/Auditory Comprehension Follows: Yes: 2 Stage Simple Commands Observation: Able to respond to yes/no queries: Yes, Yes/No Confusion: No, Comprehends Conversational Speech: Yes - Language/Verbal Expression Able to Respond to Simple Queries: Yes: WNL Able to Communicate Wants and Needs: Yes: WNL Functional Communication Status: Yes: WNL - Memory/Perception adjunct faculty for medical terminology Memory: Yes: WNL Short Term Memory: Yes: WNL - Swallow Evaluation/Bedside Assessment Current Nutritional Intake: Dysphagia Minced, Thin Liquids Oral Secretions: Yes: WFL Facial Symmetry at Rest: Facial Droop Left (complete. Left upper and lower face weakness c/w [place] Palsy) Facial Symmetry on Retraction: Facial Droop Left Against Resistance Opening: Normal Against Resistance Closing: Normal Pucker Lips: Droops Left Smile: Droops Left Lingual Movement: Symmetric Lingual Speed of Movement: Normal Lingual Movement Strgth Against Opposition: Normal Lingual Movement Characteristics: Normal Velopharyngeal Movement: Normal Laryngeal Elevation: WFL Laryngeal Movement: Able to Palpate Rate of Intake: WFL Bolus Size: WFL Labial Seal: Impaired Left (drools at times. best drinking from water bottle/ staw and cup drinking more difficult) Chewing: WFL Oral Prep Time: WFL A-P Transit: WFL Timing of Swallow: WFL Coughing/Throat Clear: No Change in Voice: No Recommendations - Speech Evaluation, Impression/Plan Impression: Left complete [place] palsy with no pursing. Drools at times. Good mastication. - Dysphagia Impressions/Plan Swallowing Skills: WFL Dysphagia Impressions: No Impairment *Silent aspiration: cannot be R/O at bedside Dysphagia Treatment Plan: Clear Pocket Food (on left), OOB for meals, OOB for 1 h. after meals - Recommendations Diet Consistency: Regular Medication Administration: Whole with water Liquids: Thin Liquids
--- NOTE | 2019-04-28 13:45 | ECHO ---
Name: [facility] Exam:Adult Echocardiogram Study Date: 04/28/2019 11:19 AM Age: 63 yrs Reason For Study: LA VIEW ONLY Height: 67 in Weight: 182 lb BSA: 1.9 m2 Atria Previously seen echodensity in left atrium is no longer seen. Interpretation Summary Limited study focusing on left atrium to evaluate for LA mass vs thrombus vs artifact seen on juan s study 04/25/2019. Previously seen echodensity is no longer seen in multiple views of left atrium c/w artifact. Treating traffic control supervisor informed. Limited study focusing on left atrium to evaluate for LA mass vs thrombus vs a rtifact seen on previous study 04/25/2019. Previously seen echodensity is no longer seen in multiple views of left atrium c/w artifact. Treating traffic control supervisor informed. Son Navarro MD 04/28/2019 01:44 PM
--- NOTE | 2019-04-28 14:06 | PN ---
Physical Exam: SUBJECTIVE: Patient seen and examined at the bedside. No acute events overnight. Pt still has left sided [place] palsy on exam. OBJECTIVE: Vital Signs Period Temp Pulse Resp BP Sys/Bynum Pulse Ox Last 24 Hr 97.4 F-98.2 F 51-78 18-22 119-133/62-69 94-95 GENERAL: The patient is awake, alert, and fully oriented, in no acute distress. HEAD: Normal with no signs of trauma. EYES: PERRL, extraocular movements intact, sclera anicteric, conjunctiva clear. No ptosis. NECK: Trachea midline, full range of motion, supple. LUNGS: Breath sounds equal, clear to auscultation bilaterally, no wheezes, no crackles, no accessory muscle use. HEART: Regular rate and rhythm, S1, S2 without murmur, rub or gallop. ABDOMEN: Soft, nontender, nondistended, normoactive bowel sounds, no guarding, no rebound, no masses. EXTREMITIES: warm, well-perfused, no edema. NEUROLOGICAL: Cranial nerve VII palsy on exam, facial asymmetry. Normal speech, gait not observed. PSYCH: Normal mood, normal affect. SKIN: Warm, dry, no rashes or lesions noted Laboratory Results - last 24 hr 04/28/19 04/28/19 04/28/19 04:58 04:58 04:58 WBC 9.5 RBC 4.43 Hgb 11.2 L Hct 34.6 L MCV 78.1 L MCH 25.2 L MCHC 32.3 RDW 17.7 H Plt Count 192 MPV 9.5 Absolute Neuts (auto) 5.6 Neutrophils % 59.2 Lymphocytes % 31.3 Monocytes % 8.7 Eosinophils % 0.5 Basophils % 0.3 Nucleated RBC % 0 PTT (Actin FS) 44.8 H Sodium 144 Potassium 3.8 Chloride 111 H Carbon Dioxide 28 Anion Gap 6 L BUN 9.5 Creatinine 0.9 Est GFR (CKD-EPI)AfAm 103.51 Est GFR (CKD-EPI)NonAf 89.31 Random Glucose 88 Calcium 8.7 Active Medications Generic Name Dose Route Start Last Admin Trade Name Freq PRN Reason Stop Dose Admin Aspirin 81 mg 04/26/19 10:00 04/28/19 10:24 Asa - PO 81 mg DAILY GILMA Administration Docusate Sodium 300 mg 04/27/19 22:00 04/27/19 21:44 Colace - PO 300 mg HS GILMA Administration Glycerin 1 each 04/28/19 08:03 Glycerin Suppository Adult - NM DAILY PRN CONSTIPATION Heparin Sodium (Porcine) 1,000 unit 04/25/19 15:56 Heparin - IVPUSH PRN PRN Heparin Heparin Sodium (Porcine) 5,000 unit 04/25/19 15:56 04/26/19 17:16 Heparin - IVPUSH 5,000 unit PRN PRN Administration Heparin Heparin Sodium/Dextrose 25,000 units in 500 mls @ 16 mls/hr 04/25/19 16:00 00:33 Heparin Infusion - IVPB 900 units/hr TITR GILMA 18 mls/hr Titration Protocol 800 UNITS/HR Polyethylene Glycol 17 gm 04/27/19 10:00 04/28/19 10:27 Miralax (For Daily Use) - PO 17 gm DAILY GILMA Administration Prednisone 40 mg 04/25/19 17:45 04/28/19 10:24 Deltasone - PO 04/29/19 10:01 40 mg DAILY GILMA Administration Rosuvastatin Calcium 20 mg 04/25/19 22:00 04/27/19 21:44 Crestor - PO 20 mg HS GILMA Administration Tamsulosin HCl 0.4 mg 04/26/19 08:30 04/28/19 10:24 Flomax - PO 0.4 mg DAILY@0830 GILMA Administration Valacyclovir HCl 1,000 mg 04/25/19 22:00 04/28/19 05:47 Valtrex - PO 04/30/19 14:01 1,000 mg TID GILMA Administration ASSESSMENT/PLAN: Images: Echo: study only done of LA to differentiate between LA mass vs thrombus and it showed previous echodensity no longer present and still not certain what is in LA. CT head: showed white matter disease. MRI: several small b/l cerebellar infarcts, minimal to mild subcortical and periventricular chronic microvascular changes. Carotid US: no hemodynamically significant stenosis. ASSESSMENT AND PLAN: This is a 63 year old male with past medical history significant for BPH, SVT, and gastritis who presented to the ER with facial droop and paresthesia of the L side of the face and arm x 7 hours on admission. #Left sided [place] palsy: - as per neuro (Dr. Oconnell) to continue prednisone 40 mg once a day 4/5 for five days, and valtrex 1 gm po tid 4/5 for five days, pt has not improved that much yet. # Left atrial clot vs mass: - pt on IV heparin drip - Echo repeat done not ble to delineate the mass in LA to be clot or mass - cardiology consult for ELIZABETH, (dr. Spann) # Chronic small bl cerebellar infarcts - on Heparin drip - continue Lipitor 40mg po daily or 20mg Crestor - on aspirin 81mg DVT Px: heparin drip ATTENDING PHYSICIAN STATEMENT I saw and evaluated the patient. I reviewed the resident's note and discussed the case with the resident. I agree with the resident's findings and plan as documented. SUBJECTIVE: OBJECTIVE: ASSESSMENT AND PLAN:
--- NOTE | 2019-04-28 15:10 | PN ---
Progress Note (short form) - Note Progress Note: s: no chest pain, palps, dizziness. TELE: sinus, PVCs Current Medications Aspirin (Asa -) 81 mg PO DAILY [facility] Last Admin: 04/28/19 10:24 Dose: 81 mg Docusate Sodium (Colace -) 300 mg PO HS [facility] Last Admin: 04/27/19 21:44 Dose: 300 mg Glycerin (Glycerin Suppository Adult -) [address] DAILY PRN PRN Reason: CONSTIPATION Last Admin: 04/28/19 14:23 Dose: 1 each Polyethylene Glycol (Miralax (For Daily Use) -) 17 gm PO DAILY [facility] Last Admin: 04/28/19 10:27 Dose: 17 gm Prednisone (Deltasone -) 40 mg PO DAILY [facility] Stop: 04/29/19 10:01 Last Admin: 04/28/19 10:24 Dose: 40 mg Rosuvastatin Calcium (Crestor -) 20 mg PO HS [facility] Last Admin: 04/27/19 21:44 Dose: 20 mg Tamsulosin HCl (Flomax -) 0.4 mg PO DAILY@0830 [facility] Last Admin: 04/28/19 10:24 Dose: 0.4 mg Valacyclovir HCl (Valtrex -) 1,000 mg PO TID [facility] Stop: 04/30/19 14:01 Last Admin: 04/28/19 14:22 Dose: 1,000 mg Vital Signs Period Temp Pulse Resp BP Sys/Bynum Pulse Ox Last 24 Hr 97.4 F-98.2 F 51-74 18-22 119-133/62-69 94-95 Constitutional: Yes: No Distress, Calm Eyes: Yes: Conjunctiva Clear HENT: Yes: Other (Left facial droop) Cardiovascular: Yes: Regular Rate and Rhythm Respiratory: Yes: CTA Bilaterally Gastrointestinal: Yes: Soft Edema: No Neurological: Yes: Alert, Oriented no jaundice, diaphoresis - ....Imaging EKG: Image Reviewed Assessment/Plan IMP: 1. [place]'s Palsy w/ left facial paralysis (complete upper/lower) 2. 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 Abnl echo w/ echodensity/shadow LA: artifact vs thrombus vs mass - likely artifact, not seen on repeat echo 4. NSVT, normal LVEF REC: 1. Tele: patient reports recurrent palpitations over last year, r/o recurrent PSVT vs PAF (old infarcts on MRI, ?LA thrombus); may be due to PVCs and short self limited runs NSVT. Maintain K>4.0, no complaints of palps today 2. Repeat echo shows normal LA without mass/thrombus - images reviewed and compared to prior, likely was artifact on prior echo, defer ELIZABETH 3. dc heparin gtt. 4. Further Rx [place]'s Palsy as per Neuro.
--- NOTE | 2019-04-28 15:31 | PN ---
Teaching Attending Note Name of Resident: Peter Sunshine ATTENDING PHYSICIAN STATEMENT I saw and evaluated the patient. I reviewed the resident's note and discussed the case with the resident. I agree with the resident's findings and plan as documented. SUBJECTIVE: Patient is improving with no acute distress. No fever or chills. OBJECTIVE: Vital Signs Temperature 97.8 F 04/28/19 09:00 Pulse Rate 64 04/28/19 09:00 Respiratory Rate 22 H 04/28/19 09:00 Blood Pressure 127/69 04/28/19 09:00 O2 Sat by Pulse Oximetry (%) 95 04/28/19 09:00 GENERAL: The patient is awake, alert, and fully oriented, in no acute distress. HEAD: Normal with no signs of trauma. EYES: PERRL, extraocular movements intact, sclera anicteric, conjunctiva clear. ENT: Ears normal, oropharynx clear without exudates, moist mucous membranes. left facial droop. NECK: Trachea midline, full range of motion, supple. LUNGS: Breath sounds equal, clear to auscultation bilaterally, no wheezes, no crackles, no accessory muscle use. HEART: Regular rate and rhythm, S1, S2 without murmur, rub or gallop. ABDOMEN: Soft, nontender, nondistended, normoactive bowel sounds, no guarding, no rebound, no hepatosplenomegaly, no masses. EXTREMITIES: 2+ pulses, warm, well-perfused, no edema. NEUROLOGICAL: Cranial nerves II through XII grossly intact. Normal speech, gait not observed. PSYCH: Normal mood, normal affect. SKIN: Warm, dry, normal turgor, no rashes or lesions noted CBCD WBC 9.5 K/mm3 (4.0-10.0) 04/28/19 04:58 RBC 4.43 M/mm3 (4.00-5.60) 04/28/19 04:58 Hgb 11.2 GM/dL (11.7-16.9) L 04/28/19 04:58 Hct 34.6 % (35.4-49) L 04/28/19 04:58 MCV 78.1 fl (80-96) L 04/28/19 04:58 MCHC 32.3 g/dl (32.0-35.9) 04/28/19 04:58 RDW 17.7 % (11.9-15.9) H 04/28/19 04:58 Plt Count 192 K/MM3 (134-434) 04/28/19 04:58 MPV 9.5 fl (7.5-11.1) 04/28/19 04:58 CMP Sodium 144 mmol/L (136-145) 04/28/19 04:58 Potassium 3.8 mmol/L (3.5-5.1) 04/28/19 04:58 Chloride 111 mmol/L (98-107) H 04/28/19 04:58 Carbon Dioxide 28 mmol/L (21-32) 04/28/19 04:58 Anion Gap 6 MMOL/L (8-16) L 04/28/19 04:58 BUN 9.5 mg/dL (7-18) 04/28/19 04:58 Creatinine 0.9 mg/dL (0.55-1.3) 04/28/19 04:58 Random Glucose 88 mg/dL (74-106) 04/28/19 04:58 Calcium 8.7 mg/dL (8.5-10.1) 04/28/19 04:58 Total Bilirubin 0.5 mg/dL (0.2-1) 04/27/19 06:30 AST 10 U/L (15-37) L 04/27/19 06:30 ALT 21 U/L (13-61) 04/27/19 06:30 Alkaline Phosphatase 61 U/L (45-117) 04/27/19 06:30 Total Protein 6.0 g/dl (6.4-8.2) L 04/27/19 06:30 Albumin 3.2 g/dl (3.4-5.0) L 04/27/19 06:30 CARDIAC ENZYMES Creatine Kinase 128 U/L (26-308) 04/25/19 11:01 Troponin I < 0.02 ng/ml (0.00-0.05) 04/25/19 11:01 Current Medications Generic Name Dose Route Start Last Admin Trade Name Franciscoq PRN Reason Stop Dose Admin Aspirin 81 mg 04/26/19 10:00 04/28/19 10:24 Asa - PO 81 mg DAILY GILMA Administration Docusate Sodium 300 mg 04/27/19 22:00 04/27/19 21:44 Colace - PO 300 mg HS GILMA Administration Glycerin 1 each 04/28/19 08:03 04/28/19 14:23 Glycerin Suppository Adult - DC 1 each DAILY PRN Administration CONSTIPATION Polyethylene Glycol 17 gm 04/27/19 10:00 04/28/19 10:27 Miralax (For Daily Use) - PO 17 gm DAILY GILMA Administration Prednisone 40 mg 04/25/19 17:45 04/28/19 10:24 Deltasone - PO 04/29/19 10:01 40 mg DAILY GILMA Administration Rosuvastatin Calcium 40 mg 04/28/19 22:00 Crestor - PO HS [facility] Tamsulosin HCl 0.4 mg 04/26/19 08:30 04/28/19 10:24 Flomax - PO 0.4 mg DAILY@0830 GILMA Administration Valacyclovir HCl 1,000 mg 04/25/19 22:00 04/28/19 14:22 Valtrex - PO 04/30/19 14:01 1,000 mg TID GILMA Administration Home Medications Medication Instructions Recorded Tamsulosin HCl [Flomax -] 0.4 mg PO DAILY 01/07/15 Aspirin [Ecotrin] 81 mg PO DAILY #30 tablet. 04/28/19 Docusate Sodium [Colace -] 300 mg PO HS #30 capsule 04/28/19 Polyethylene Glycol 3350 [Miralax 17 gm PO DAILY #0 bottle 04/28/19 119 gm Btl -] Rosuvastatin [Crestor -] 40 mg PO HS #30 tablet 04/28/19 Tamsulosin HCl [Flomax -] 0.4 mg PO DAILY@0830 cap.er.24h 04/28/19 Valacyclovir HCl [Valtrex -] 1,000 mg PO TID #4 tablet 04/28/19 predniSONE [Deltasone -] 40 mg PO DAILY #2 tablet 04/28/19 Echo: left atrium clot vs artifact HEAD ct: showed white matter disease. MRI: several small bl cerebellar infarcts BL, no acute event Carotid US: within nl limits ASSESSMENT AND PLAN: This patient is a 63 year old male with past medical history significant for Prostate Cancer, SVT, and gastritis who presented to the ER with facial droop and paresthesia of the L side of the face and arm x 7 hours on the admission day. #Left [place] palsy: as per neuro to continue prednisone 40 mg once a day 4/5 for five days, and valtrex 1 gm po tid 4/5 for five days, patient is better today, improving. will discharge the patient on one more day of prednisone and Vlatrex. follow up with neuro and cardio in a week. # Left atrial clot vs artifact : will dc heparin , repeat ECHO is negative, as per previous echo was an artifact , follow with cardiology dr. Jansen. # Chronic small bl cerebellar infarcts s/p Heparin drip , patient will be discharged on Aspriin , crestor 40mg. follow with neuro in a week. # BPH: on Flomax continue discharge patient home.
--- NOTE | 2019-04-28 16:05 | DS ---
Physical Exam: SUBJECTIVE: Patient seen and examined at the bedside this AM. No acute events overnight. Pt still has some facial palsy. OBJECTIVE: Vital Signs Period Temp Pulse Resp BP Sys/Bynum Pulse Ox Last 24 Hr 97.4 F-98.2 F 51-74 18-22 119-133/62-69 94-95 PHYSICAL EXAM GENERAL: The patient is awake, alert, and fully oriented, in no acute distress. HEAD: Normal with no signs of trauma. EYES: PERRL, extraocular movements intact, sclera anicteric, conjunctiva clear. NECK: Trachea midline, full range of motion, supple. LUNGS: Breath sounds equal, clear to auscultation bilaterally, no wheezes, no crackles, no accessory muscle use. HEART: Regular rate and rhythm, S1, S2 without murmur, rub or gallop. ABDOMEN: Soft, nontender, nondistended, normoactive bowel sounds, no guarding, no rebound, no masses. EXTREMITIES: 2+ pulses, warm, well-perfused, no edema. NEUROLOGICAL: Cranial nerve VII palsy on exam. Only Rt sided function of facial muscles. Normal speech, gait not observed. PSYCH: Normal mood, normal affect. SKIN: Warm, dry, no rashes or lesions noted. LABS Laboratory Results - last 24 hr 04/28/19 04/28/19 04/28/19 04:58 04:58 04:58 WBC 9.5 RBC 4.43 Hgb 11.2 L Hct 34.6 L MCV 78.1 L MCH 25.2 L MCHC 32.3 RDW 17.7 H Plt Count 192 MPV 9.5 Absolute Neuts (auto) 5.6 Neutrophils % 59.2 Lymphocytes % 31.3 Monocytes % 8.7 Eosinophils % 0.5 Basophils % 0.3 Nucleated RBC % 0 PTT (Actin FS) 44.8 H Sodium 144 Potassium 3.8 Chloride 111 H Carbon Dioxide 28 Anion Gap 6 L BUN 9.5 Creatinine 0.9 Est GFR (CKD-EPI)AfAm 103.51 Est GFR (CKD-EPI)NonAf 89.31 Random Glucose 88 Calcium 8.7 04/28/19 12:45 WBC RBC Hgb Hct MCV MCH MCHC RDW Plt Count MPV Absolute Neuts (auto) Neutrophils % Lymphocytes % Monocytes % Eosinophils % Basophils % Nucleated RBC % PTT (Actin FS) 200.5 H Sodium Potassium Chloride Carbon Dioxide Anion Gap BUN Creatinine Est GFR (CKD-EPI)AfAm Est GFR (CKD-EPI)NonAf Random Glucose Calcium HOSPITAL COURSE: Date of Admission:04/25/19 Echo: study only done of LA to differentiate between LA mass vs thrombus and it showed previous echodensity no longer present and still not certain what is in LA. CT head: showed white matter disease. MRI: several small b/l cerebellar infarcts, minimal to mild subcortical and periventricular chronic microvascular changes. Carotid US: no hemodynamically significant stenosis. This is a 63 year old male with a past medical history significant for BPH, SVT , and gastritis who was admitted for [place] Palsy. - She is currently on Valtrex 1g TID and Prednisone 40mg daily. She will continue for one more day to complete the treatment regimen. Patient has improved while on these medications. - While patient was here two echos were performed due to an initial echo showing a possible LA clot but it was found to be an artifact on repeat imaging. - Given patients history of b/l cerebellar infarcts, we put him on ASA 81 mg and crestor 40mg for prevention. Date of Discharge: 04/28/19 Minutes to complete discharge: 35 Discharge Summary Reason For Visit: CVA Condition: Stable - Instructions Diet, Activity, Other Instructions: You were admitted for having weakness in your face muscles (bells palsy). We are treating you with medications as listed underneath. Furthermore, while you were here we did an ultrasound of your heart to look at its function and we repeated it but it was found to be normal. 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 - You should follow up with your primary care physician in 1 week. - Please continue all your home medications as prescribed. - Return to the emergency room if you are experiencing worsening of your current symptoms or: chest pain, shortness of breath, lightheadedness, or fevers. Medications for your facial numbness: Valtrex 1g three times a day for 1 one more day (04/29). Prednisone 40 mg once a day for one more day (04/29). For your constipation: - Docusate 200mg by mouth one time before bed. You may discontinue use when your constipation is resolved. For preventing blood clotting please take: - Aspirin 81 mg by mouth daily to prevent forming clots. - Crestor 40mg by mouth daily to help lower your cholesterol. Referrals: Marcos Mai MD [Staff Physician] - 1 Week Stan Coates MD [Staff Physician] - 1 Week Disposition: HOME - Home Medications Comprehensive Discharge Medication List: Ambulatory Orders Tamsulosin HCl [Flomax -] 0.4 mg PO DAILY 01/07/15 Aspirin [Ecotrin] 81 mg PO DAILY #30 tablet.dr 04/28/19 Docusate Sodium [Colace -] 300 mg PO HS #30 capsule 04/28/19 Polyethylene Glycol 3350 [Miralax 119 gm Btl -] 17 gm PO DAILY #0 bottle Rosuvastatin [Crestor -] 40 mg PO HS #30 tablet 04/28/19 Tamsulosin HCl [Flomax -] 0.4 mg PO DAILY@0830 cap.er.24h 04/28/19 Valacyclovir HCl [Valtrex -] 1,000 mg PO TID #4 tablet 04/28/19 predniSONE [Deltasone -] 40 mg PO DAILY #2 tablet 04/28/19 This patient is new to me today: Yes Date on this admission: 04/28/19 Emergency Visit: No Critical Care patient: No - Discharge Referral Referred to [facility] No ATTENDING PHYSICIAN STATEMENT I saw and evaluated the patient. I reviewed the resident's note and discussed the case with the resident. I agree with the resident's findings and plan as documented. SUBJECTIVE: OBJECTIVE: ASSESSMENT AND PLAN:
[2019-04-28] MEDS ORDERED: ROSUVASTATIN CA 20 MG TABLET (FP) PO SCH (22:00)
== END 2019-04-28 17:29 | disposition home or self-care (01) | DRG 73 ==
LOC: JER 10:21 → JERBED 12:20 → J4W 20:44
PROVIDERS: ADMIT Internal Medicine; ATTEND Internal Medicine
DX: G51.0 Bell's palsy (principal); I21.9 Acute myocardial infarction, unspecified; G81.94 Hemiplegia, unspecified affecting left nondominant side; K21.9 Gastro-esophageal reflux disease without esophagitis; K29.60 Other gastritis without bleeding; N40.0 Benign prostatic hyperplasia without lower urinary tract symptoms; I63.89 Other cerebral infarction; E78.5 Hyperlipidemia, unspecified; R00.0 Tachycardia, unspecified; R29.702 NIHSS score 2; Z87.891 Personal history of nicotine dependence; Z85.46 Personal history of malignant neoplasm of prostate
CPT/HCPCS: 36415; 70450-TC; 70551-TC; 80048; 80053; 81003; 82465; 82550; 82607; 82962; 83036; 83718; 83721; 83735; 84100; 84478; 84484; 85025; 85610; 85651; 85730; 86618; 93005; 93010; 93306-TC; 93880-TC; 99285-25; J1644; J7030

== ENCOUNTER 2025-08-04 06:10 | Day surgery (SDC) | payer OTHER ==
[2025-07-31 16:50] VITALS: BMI 29.0
[2025-08-04] MEDS ORDERED: MIDAZOLAM HCL 2 MG/2 ML SINGLE DOSE VIAL ONE (10:15)
[2025-08-04] MEDS ORDERED: LACTATED RINGERS SOLUTION 1,000 ML IV SCH (11:45)
[2025-08-04] MEDS ORDERED: ONDANSETRON 4 MG/2 ML VIAL IVPUSH PRN (11:45)
[2025-08-04 13:33] VITALS: BP 127/79; PULSE 69; RESP 16; TEMP 97
== END 2025-08-04 14:15 | disposition home or self-care (01) ==
LOC: JASU-SURG 06:10
PROVIDERS: ATTEND Urology
PROC: 0T7D8DZ Dilation of Urethra with Intraluminal Device, Via Natural or Artificial Opening Endoscopic (ICD-10-PCS; principal; 2025-08-04 10:00)
DX: N40.1 Benign prostatic hyperplasia with lower urinary tract symptoms (principal); R33.8 Other retention of urine
CPT/HCPCS: C9740; L8699; 94760